=== PATIENT | male | born 1995 | race Caucasian/White ===

== ENCOUNTER 2019-02-26 18:56 | Emergency (ER) | payer BC ==
[2019-02-26] MEDS ORDERED: Famotidine 20 MG/2 ML SDV IVPUSH ONE (19:08)
[2019-02-26] MEDS ORDERED: Lactated Ringers 1,000 ML IV ONE (19:08)
[2019-02-26] MEDS ORDERED: Ketorolac 30 MG/ML SDV IVPUSH ONE (19:08)
--- NOTE | 2019-02-26 19:15 | EDM.PDOC ---
ED HPI GENERAL MEDICAL PROBLEM - General Chief Complaint: General Stated Complaint: "My whole body aches" Time Seen by Provider: 02/26/19 19:00 Source of Information: Reports: Patient. Denies: Old Records ([facility] records available) History Limitations: Reports: No Limitations - History of Present Illness INITIAL COMMENTS - FREE TEXT/NARRATIVE: The patient drove himself to the emergency room via private automobile for evaluation of 8/10 diffuse nonspecific arthralgias with nonspecific 6/10 abdominal cramping with symptoms starting at about noon today. The patient did take 500 mg of Tylenol at about 18:30 hours this afternoon with no improvement in symptoms. He did have a small flee-sized 6 on his left temporal region and left forearm about 2 weeks ago, which were easily removed without difficulty. No history of previous sentinel rash, pruritus, or other allergic-type symptoms. He denies any known exposure to infection, food poisoning, etc. The patient was working outside in the [employer] today, however he states he was mostly in an air-conditioned cab. No recent history of heartburn, nausea, diarrhea, melena, gross hematochezia, or any food intolerance, including fatty foods, etc.. He also denies any gross hematuria, colic, or other UTI symptoms. The patient denies any chest pain/pressure, heart flutter, dizziness, orthostasis, orthopnea, diaphoresis, paresthesias, recent decreased exercise tolerance, or any other anginal-type symptoms. No history of recent headaches, visual changes, diplopia, change in mental status, or other change in neurological status. Onset: Today, Gradual Onset Date: 02/26/19 Onset Time: 12:00 Duration: Constant, Getting Worse Location: Reports: Neck, Generalized Quality: Reports: Ache Severity: Moderate Improves with: Reports: None Worsens with: Reports: None Context: Reports: Other (As above). Denies: Sick Contact, Trauma Associated Symptoms: Denies: Confusion, Chest Pain, Cough, Diaphoresis, Fever/ Chills, Headaches, Loss of Appetite, Nausea/Vomiting, Rash, Shortness of Breath , Syncope, Weakness Treatments FACTORER: Reports: Acetaminophen back Pain Score (Numeric/FACES): 8 (Generalized arthralgias) - Related Data Allergies Allergy/AdvReac Type Severity Reaction Status Date / Time No Known Allergies Allergy Verified 02/26/19 19:22 Past Medical History - Past Health History Medical/Surgical History: Denies Medical/Surgical History Social & Family History - Tobacco Use Smoking Status *Q: Never Smoker Tobacco Use Within Last Twelve Months: No Used Tobacco, but Quit: No Smoking Cessation Information Provided To Patient: No Second Hand Smoke Exposure: No Second Hand Smoke Education Provided: No - Living Situation & Occupation Occupation: Employed (Road construction) ED ROS GENERAL - Review of Systems Review Of Systems: ROS reveals no pertinent complaints other than HPI. ED EXAM, GENERAL - Physical Exam Exam: See Below Exam Limited By: Uncooperative General Appearance: Alert, No Apparent Distress Eye Exam: Bilateral Eye: EOMI, Normal Inspection (No nystagmus), PERRL Ears: Normal External Exam, Normal Canal, Hearing Grossly Normal, Normal TMs Nose: Normal Inspection, Normal Mucosa, No Blood Throat/Mouth: Normal Inspection, Normal Lips, Normal Teeth, Normal Gums, Normal Oropharynx, Normal Voice, No Airway Compromise. No: Dysphagia, Perioral Cyanosis Head: Atraumatic, Normocephalic. No: Facial Swelling, Facial Tenderness, Sinus Tenderness Neck: Normal Inspection, Supple, Non-Tender, Full Range of Motion, Other ( Negative meningeal signs). No: Lymphadenopathy (L), Lymphadenopathy (R), Thyromegaly Respiratory/Chest: No Respiratory Distress, Lungs Clear, Normal Breath Sounds, No Accessory Muscle Use, Chest Non-Tender. No: Pleural Rub, Retractions Cardiovascular: Normal Peripheral Pulses, Regular Rate, Rhythm, No Edema, No Gallop, No JVD, No Murmur, No Rub. No: Gallop/S3, Gallop/S4, Friction Rub Peripheral Pulses: 2+: Radial (L), Radial (R) GI/Abdominal: Normal Bowel Sounds, Soft, Non-Tender, No Organomegaly, No Distention, No Abnormal Bruit, No Mass. No: Guarding (Male) Exam: Deferred Rectal (Males) Exam: Deferred Back Exam: Normal Inspection, Full Range of Motion. No: CVA Tenderness (L), CVA Tenderness (R), Muscle Spasm Extremities: Normal Inspection, Normal Range of Motion, Non-Tender, No Pedal Edema, Normal Capillary Refill. No: Brayden's Sign Neurological: Alert, Oriented, CN II-XII Intact, Normal Cognition, Normal Gait, No Motor/Sensory Deficits Psychiatric: Normal Affect, Normal Mood Skin Exam: Warm, Dry, Intact, Normal Color, No Rash. No: Diaphoretic, Rash, Wound/Incision Lymphatic: No Adenopathy Course - Vital Signs Last Recorded V/S: Last Vital Signs Temp 36.8 C 02/26/19 19:00 Pulse 78 02/26/19 19:00 Resp 16 02/26/19 19:00 BP 130/66 02/26/19 19:00 Pulse Ox 98 02/26/19 19:00 Vital Signs - 24 hr 02/26/19 19:00 Temperature [ 36.8 C Oral] Pulse, 78 Peripheral [ Right Pulse Oximetry] Respiratory 16 Rate Blood Pressure 130/66 [Left Upper Arm ] O2 Sat by Pulse 98 Oximetry - Orders/Labs/Meds Orders: Active Orders 24 hr Category Date Time Status Peripheral IV Care [RC] . DIRECTED Care 02/26/19 19:09 Active Abdomen Series w Chest 1V [CR] Routine Exams 02/26/19 19:07 Taken CULTURE STREP A CONFIRMATION [RM] Stat Lab 02/26/19 19:25 Results CULTURE URINE [RM] Routine Lab 02/26/19 19:06 Ordered STREP SCRN A RAPID W CULT CONF [RM] Stat Lab 02/26/19 19:25 Results Sodium Chloride 0.9% [Saline Flush] Med 02/26/19 19:09 Active 10 ml FLUSH ASDIRECTED PRN Obtain Past Medical Record [OM.PC] Routine Oth 02/26/19 19:09 Active Peripheral IV Insertion Adult [OM.PC] Routine Oth 02/26/19 19:09 Ordered Medication Orders Sodium Chloride (Saline Flush) 10 ml FLUSH ASDIRECTED PRN PRN Reason: Keep Vein Open Last Admin: 02/26/19 19:50 Dose: 10 ml Admin: 02/26/19 19:49 Dose: 10 ml Labs: Laboratory Tests 02/26/19 02/26/19 02/26/19 Range/Units 19:30 19:30 19:30 WBC 7.4 (4.0-10.2) K/uL RBC 4.83 (4.33-5.41) M/uL Hgb 15.2 (13.1-16.8) g/dL Hct 42.5 (39.0-49.0) % MCV 88.0 (84.0-98.0) fL MCH 31.5 (28.2-33.3) pg MCHC 35.8 (31.7-36.0) g/dL RDW 11.4 (11.2-14.1) % Plt Count 189 (150-350) K/uL Neut % (Auto) 66.1 (45.0-80.0) % Lymph % (Auto) 20.9 (10.0-50.0) % [place] % (Auto) 11.6 (2.0-14.0) % Eos % (Auto) 1.3 (0.0-5.0) % Baso % (Auto) 0.1 (0.0-2.0) % Neut # (Auto) 4.89 (1.40-7.00) K/uL Lymph # (Auto) 1.55 (0.50-3.50) K/uL [place] # (Auto) 0.86 (0.00-1.00) K/uL Eos # (Auto) 0.10 (0.00-0.50) K/uL Baso # (Auto) 0.01 (0.00-0.20) K/uL Sodium 141 (136-145) mmol/L Potassium 3.9 (3.5-5.1) mmol/L Chloride 104 (98-107) mmol/L Carbon Dioxide 26.3 (21.0-32.0) mmol/L BUN 18 (7-18) mg/dL Creatinine 1.01 (0.51-1.17) mg/dL Est Cr Clr Drug Dosing TNP Estimated GFR (MDRD) > 60 mL/min Glucose 115 H (74-106) mg/dL Lactic Acid 1.9 (0.4-2.0) mmol/L Calcium 9.3 (8.5-10.1) mg/dL Total Bilirubin 0.4 (0.2-1.0) mg/dL AST 18 (15-37) U/L ALT 28 (12-78) U/L Alkaline Phosphatase 80 (46-116) IU/L C-Reactive Protein 0.6 (<=0.9) mg/dL Total Protein 7.0 (6.4-8.2) g/dL Albumin 4.0 (3.4-5.0) g/dL Amylase 43 (25-115) U/L Lipase 174 (73-393) U/L Meds: Medications Generic Name Dose Route Start Last Admin Trade Name Freq PRN Reason Stop Dose Admin Sodium Chloride 10 ml 02/26/19 19:09 02/26/19 19:50 Saline Flush FLUSH 10 ml ASDIRECTED PRN Administration Keep Vein Open Discontinued Medications Generic Name Dose Route Start Last Admin Trade Name Marcosq PRN Reason Stop Dose Admin Famotidine 40 mg 02/26/19 19:08 02/26/19 19:39 Pepcid IVPUSH 02/26/19 19:09 40 mg ONETIME ONE Administration Lactated Ringer's 1,000 mls @ 999 mls/hr 02/26/19 19:08 02/26/19 19:39 Ringers, Lactated IV 02/26/19 20:08 999 mls/hr .BOLUS ONE Administration Ketorolac Tromethamine 30 mg 02/26/19 19:08 02/26/19 19:48 Toradol IVPUSH 02/26/19 19:09 30 mg ONETIME ONE Administration - Radiology Interpretation Free Text/Narrative:: Acute abdominal x-rays shows mild scoliosis and osteoarthritic changes with no cardiomegaly, CHF, pulmonary infiltrates, pneumothorax, fluid levels, ileus, free air, obstruction, intra-abdominal calcifications, etc. Departure - Departure Time of Disposition: 21:40 Disposition: Home, Self-Care 01 Condition: Good Clinical Impression: Scoliosis Arthralgia Qualifiers: Joint pain location: unspecified Qualified Code(s): M25.50 - Pain in unspecified joint Abdominal pain Qualifiers: Abdominal location: generalized Qualified Code(s): R10.84 - Generalized abdominal pain - Discharge Information *PRESCRIPTION DRUG MONITORING PROGRAM REVIEWED*: Not Applicable *COPY OF PRESCRIPTION DRUG MONITORING REPORT IN PATIENT MINDY: Not Applicable Instructions: Abdominal Pain, Adult, [id number] Referrals: PCP,Unknown [Primary Care Provider] - Forms: ED Department Discharge, ED Return to Work/School Form Additional Instructions: 1. Follow up with your regular provider in 10-14 days as needed, if symptoms persist. Bring these discharge instructions with you to that visit.. 2. Tylenol 650 mg by mouth every 4 hours and/or OTC ibuprofen 2-3 tabs by mouth every 6 hours with food as directed./needed. You may stagger these medications for 48-72 hours only, which essentially means that you are receiving a pain medication about every 2 hours. Next dose of ibuprofen in 6 hours as needed secondary to medications given in the emergency room 3. Work excuse- See Form 4. BenGay or equivalent, heating pad, and/or ice packs as directed. 5. [place] diet including encouragement of oral fluids such as sports drinks, etc. for 24-48 hours as directed. Advance to regular diet as tolerated thereafter. 6. Immediately after this visit verify that your cellular telephone's voicemail has been activated and is empty. Also verify that your home telephone 's answering machine is operating properly and has space to receive messages. Note that it is sometimes necessary for us to be able to contact you at a later date to discuss your medical care. 7. Please remember that we are ALWAYS here for you and want to answer any questions you may have. Feel free to call the hospital any time and we call you back KAT. - Problem List & Annotations (1) Scoliosis SNOMED Code(s): 109853424 Code(s): M41.9 - SCOLIOSIS, UNSPECIFIED Status: Chronic Priority: Medium Current Visit: Yes Annotation/Comment:: Nonsymptomatic. Observe for now Qualifiers: Scoliosis type: unspecified scoliosis Spinal region: thoracolumbar Qualified Code(s): M41.9 - Scoliosis, unspecified (2) Arthralgia SNOMED Code(s): 64260383 Code(s): M25.50 - PAIN IN UNSPECIFIED JOINT Status: Acute Priority: High Current Visit: Yes Onset Date: 02/26/19 Annotation/Comment:: Nonspecific arthralgias, which started extremely well to IV lactated Ringer's and IV Toradol. Possible dehydration component secondary to today's hot weather. Patient was concerned about possible Lyme's disease, meningitis, etc. Note no sentinel rash, no meningeal signs, etc.. Lyme's titer would likely not be positive at this time with consideration of this at time of follow-up visit with his regular provider 2 weeks, if symptoms recur or are refractory to OTC medications as per discharge instructions. Work excuse was provided. Qualifiers: Joint pain location: unspecified Qualified Code(s): M25.50 - Pain in unspecified joint (3) Abdominal pain SNOMED Code(s): 25582910 Code(s): R10.9 - UNSPECIFIED ABDOMINAL PAIN Status: Acute Priority: High Current Visit: Yes Onset Date: 02/26/19 Annotation/Comment:: High-dose IV Pepcid was given as GI prophylaxis with no previous problems with GERD, etc. Abdominal pain possibly related to dehydration today as above. Observe for now. Note that the patient is visiting the area from [place]. Qualifiers: Abdominal location: generalized Qualified Code(s): R10.84 - Generalized abdominal pain - Problem List Review Problem List Initiated/Reviewed/Updated: Yes - My Orders Last 24 Hours: My Active Orders 02/26/19 19:06 CULTURE URINE [RM] Routine 02/26/19 19:07 Abdomen Series w Chest 1V [CR] Routine 02/26/19 19:09 Peripheral IV Care [RC] . DIRECTED Sodium Chloride 0.9% [Saline Flush] 10 ml FLUSH ASDIRECTED PRN Obtain Past Medical Record [OM.PC] Routine Peripheral IV Insertion Adult [OM.PC] Routine 02/26/19 19:25 CULTURE STREP A CONFIRMATION [RM] Stat STREP SCRN A RAPID W CULT CONF [RM] Stat - Assessment/Plan Last 24 Hours: My Active Orders 02/26/19 19:06 CULTURE URINE [RM] Routine 02/26/19 19:07 Abdomen Series w Chest 1V [CR] Routine 02/26/19 19:09 Peripheral IV Care [RC] . DIRECTED Sodium Chloride 0.9% [Saline Flush] 10 ml FLUSH ASDIRECTED PRN Obtain Past Medical Record [OM.PC] Routine Peripheral IV Insertion Adult [OM.PC] Routine 02/26/19 19:25 CULTURE STREP A CONFIRMATION [RM] Stat STREP SCRN A RAPID W CULT CONF [RM] Stat Assessment:: As above Plan: As above. Extensive precautions were given to the patient, who is in agreement with the treatment plan.
[2019-02-26] MEDS: Sodium Chloride 0.9% 10 ML Syringe FLUSH PRN ×2 (19:49→19:50)
[2019-02-26 19:59] LABS: CHLORIDE,CL 104 mmol/L (98-107); SODIUM,NA 141 mmol/L (136-145)
== END 2019-02-26 21:37 | disposition home or self-care (01) ==
LOC: LL.ED 18:56
DX: M25.50 Pain in unspecified joint (principal); M41.9 Scoliosis, unspecified; R10.84 Generalized abdominal pain
CPT/HCPCS: 36415; 74022; 80053; 82150; 83605; 83690; 85025; 86140; 87081; 87430; 87804; 96361; 96374; 96375; 99283-25; J1885; J3490; J7120